=== PATIENT | female | born 1955 | race Caucasian/White ===

== ENCOUNTER 2018-08-07 11:39 | Inpatient (IN) | payer OTHER ==
[~2018-08-07] VITALS: Ht 154.9 cm; Wt 74.8 kg
[2018-08-07 11:46] VITALS: BP_SYST 151
[2018-08-07 12:26] LABS: BASOPHILS # (AUTO) 0.1 K/uL (0.0-0.2); BASOPHILS % (AUTO) 0.9 % (0.0-2.0); EOSINOPHILS # (AUTO) 0.1 K/uL (0.0-0.4); EOSINOPHILS % (AUTO) 1.4 % (0.0-4.0); HEMATOCRIT 38.4 % (36-48); HEMOGLOBIN 12.7 g/dL (12.0-16.0); MEAN CORPUSCULAR HEMOGLOBIN 31 pg (27-31); MEAN CORPUSCULAR HGB CONC 33 % (32-36); MEAN CORPUSCULAR VOLUME 94 fL (79.0-98.0); MONOCYTES # (AUTO) 0.5 K/uL (0.0-1.0); MONOCYTES % (AUTO) 8.1 % (1.7-9.3); NEUTROPHILS % (AUTO) 72.6 % (40.0-70.0); PLATELET COUNT (AUTO) 312 K/uL (130-430); RED BLOOD CELL COUNT(AUTO) 4.08 MIL/uL (4.2-6.2); RED CELL DISTRIBUTION WIDTH 11.8 % (9.0-15.0); WHITE BLOOD COUNT (AUTO) 5.7 K/uL (4.8-10.8)
[2018-08-07 12:50] LABS: CALCIUM 8.9 mg/dL (8.4-11.0); CREATININE 0.73 mg/dL (0.55-1.30)
[2018-08-07 12:57] LABS: PROTHROMBIN TIME 10.3 SECS (9.5-12.5)
[2018-08-07] MEDS ORDERED: POTASSIUM CHLORIDE 20 MEQ/PKT PACKET PO ONE (13:00)
[2018-08-07 13:06] LABS: ALBUMIN 3.6 g/dL (3.4-4.8); TOTAL BILIRUBIN 0.9 mg/dL (0.0-1.0)
[2018-08-07] MEDS ORDERED: HYDR25TA4 PO (13:37)
[2018-08-07] MEDS ORDERED: OMEP20CA10 PO (13:37)
[2018-08-07] MEDS ORDERED: LORA10TA7 PO (13:37)
[2018-08-07] MEDS ORDERED: PRO10 PO (13:38)
[2018-08-07 15:39] VITALS: BP_SYST 148
[2018-08-07 15:42] VITALS: BP_SYST 148
[2018-08-07 20:16] VITALS: BP_SYST 143
[2018-08-07] MEDS: ACETAMINOPHEN 325 MG TABLET PO PRN (22:38)
[2018-08-08 00:52] VITALS: BP_SYST 135
[2018-08-08 08:01] VITALS: BP_SYST 154
[2018-08-08] MEDS: OMEPRAZOLE 20 MG CAPSULE.DR (PriLOSEC) PO SCH (08:32)
[2018-08-08] MEDS: LORATADINE 10 MG TABLET PO SCH (08:32)
[2018-08-08] MEDS: HYDROCHLOROTHIAZIDE 25 MG TABLET (HCTZ) PO SCH (08:32)
[2018-08-08] MEDS: FLUoxetine HCL 10 MG CAPSULE (PROzac) PO SCH (08:33)
[2018-08-08 09:35] LABS: BASOPHILS % (AUTO) 0.4 % (0.0-2.0); EOSINOPHILS # (AUTO) 0.1 K/uL (0.0-0.4); EOSINOPHILS % (AUTO) 1.3 % (0.0-4.0); HEMATOCRIT 38.1 % (36-48); HEMOGLOBIN 13.1 g/dL (12.0-16.0); LYMPHOCYTES # (AUTO) 0.9 K/uL (1.0-5.5); LYMPHOCYTES % (AUTO) 13.7 % (20.5-51.5); MEAN CORPUSCULAR HEMOGLOBIN 32 pg (27-31); MEAN CORPUSCULAR HGB CONC 34 % (32-36); MEAN CORPUSCULAR VOLUME 94 fL (79.0-98.0); MONOCYTES # (AUTO) 0.5 K/uL (0.0-1.0); MONOCYTES % (AUTO) 8.1 % (1.7-9.3); NEUTROPHILS # (AUTO) 4.8 K/uL (1.8-7.7); NEUTROPHILS % (AUTO) 76.5 % (40.0-70.0); PLATELET COUNT (AUTO) 305 K/uL (130-430); RED BLOOD CELL COUNT(AUTO) 4.08 MIL/uL (4.2-6.2); RED CELL DISTRIBUTION WIDTH 11.5 % (9.0-15.0); WHITE BLOOD COUNT (AUTO) 6.3 K/uL (4.8-10.8)
[2018-08-08 09:45] LABS: CALCIUM 8.9 mg/dL (8.4-11.0); POTASSIUM 3.1 mmol/L (3.5-5.1)
[2018-08-08 09:46] LABS: ALBUMIN 3.4 g/dL (3.4-4.8); CREATININE 0.85 mg/dL (0.55-1.30); THYROID STIMULATING HORMONE 1.16 uIu/mL (0.36-3.74); TOTAL BILIRUBIN 0.6 mg/dL (0.0-1.0)
[2018-08-08 12:30] VITALS: BP_SYST 136
[2018-08-08] MEDS ORDERED: POTASSIUM CHLORIDE 20 MEQ TAB.PRT.SR PO ONE (15:15)
[2018-08-08] MEDS: ACETAMINOPHEN 325 MG TABLET PO PRN (16:09)
[2018-08-08 16:45] VITALS: BP_SYST 135
[2018-08-08 20:05] VITALS: BP_SYST 137
[2018-08-09 00:17] VITALS: BP_SYST 133
[2018-08-09 07:55] VITALS: BP_SYST 146
[2018-08-09] MEDS: OMEPRAZOLE 20 MG CAPSULE.DR (PriLOSEC) PO SCH (08:31)
[2018-08-09] MEDS: FLUoxetine HCL 10 MG CAPSULE (PROzac) PO SCH (08:31)
[2018-08-09] MEDS: LORATADINE 10 MG TABLET PO SCH (08:31)
[2018-08-09] MEDS: HYDROCHLOROTHIAZIDE 25 MG TABLET (HCTZ) PO SCH (08:31)
== END 2018-08-09 10:35 | disposition left against medical advice (07) | DRG 53 ==
LOC: SED 11:39 → STU 14:01
PROVIDERS: ADMIT Internal Medicine Hospice and Palliative Medicine; ATTEND Internal Medicine Hospice and Palliative Medicine
DX: R56.9 Unspecified convulsions (principal); E87.6 Hypokalemia; I10 Essential (primary) hypertension; F41.9 Anxiety disorder, unspecified; K21.9 Gastro-esophageal reflux disease without esophagitis; J30.2 Other seasonal allergic rhinitis; Z79.899 Other long term (current) drug therapy; Z87.891 Personal history of nicotine dependence; Z90.3 Acquired absence of stomach [part of]
CPT/HCPCS: 36415; 70450-TC; 70551; 71045; 80053; 80061; 84443-TC; 84484; 85025; 85610-TC; 93005; 93306; 93880; 99285